=== PATIENT | male | born 1985 | race African-American/Black ===

== ENCOUNTER 2019-04-29 10:08 | Emergency (ER) | payer OTHER ==
[~2019-04-29] VITALS: Ht 182.9 cm; Wt 90.7 kg
[~2019-04-29 10:08] MED LIST: FLEXERIL PO; LORTAB 5 MG/5001 TA1 PO
[2019-04-29 10:15] VITALS: BP 166/111
--- NOTE | 2019-04-29 16:31 | EKG ---
[facility] [place] [address] ELECTROCARDIOGRAM REPORT Name: JAMES ROSARIO Room #: REG [facility]#: [id number] Admission: 04/29/19 Attend Phys: Discharge: Date of : 81 Report #: [id number] THIS REPORT FOR: cc: NO FAMILY PHYSICIAN or PCP FAM - No family physician/PCP Jorgito Barroso MD [facility] ~ THIS REPORT FOR: //name// [facility] ED Test Date: 2019-04-29 Test Time: 10:39:28 Pat Name: JAMES ROSARIO Department: Room: Gender: [employer]ing [employer] Operator: CADENCE : 1985 Requested By: Shaheen Loomis Order Number: [id number] MD: Jorgito Barroso Measurements Intervals [place] Rate: 75 P: 27 [place]: 146 QRS: -17 QRSD: 94 T: 224 QT: 415 QTc: 464 Interpretive Statements Sinus rhythm LVH with secondary repolarization abnormality Anterior ST elevation, probably due to LVH No previous ECG available for comparison Electronically Signed On 04-29-2019 16:30:43 [employer] by Jorgito Barroso [email or web address] <ELECTRONICALLY SIGNED> By: Jorgito Barroso MD, [facility] 04/29/19 1630 1039 [id number] Jorgito Barroso MD, [facility] /EPI
== END 2019-04-29 11:11 | disposition left against medical advice (07) ==
LOC: ER 10:08
DX: J11.1 Influenza due to unidentified influenza virus with other respiratory manifestations (principal); R07.89 Other chest pain; R94.31 Abnormal electrocardiogram [ECG] [EKG]; I10 Essential (primary) hypertension; F17.210 Nicotine dependence, cigarettes, uncomplicated; Z87.01 Personal history of pneumonia (recurrent)